=== PATIENT | male | born 1940 | race Caucasian/White ===

== ENCOUNTER → 2016-07-18 | Outpatient (CLI) | payer MEDICARE, OTHER ==
[~2016-07-18] MED LIST: ASPIRIN E.C. 8181 MG PO; CARAFATE 1GM1 G PO; CENTRUM1 TAB PO; CIPRO 500MG TA500 MG PO; CRESTOR 10MG10 MG PO; DILANTIN 100MG100 MG PO; EXELON9.5 MG/24 TD; LEXAPRO 10MG10 MG PO; MIRALAX PA17 GM/Dose PO; NAMENDA 10MG TA10 MG; NAPROSYN 2250 MG/TAB PO; ORAXYL20 MG PO; PERIOSTAT; PRILOSEC 20MG20 MG PO; TYLENOL 325MG325 MG PO; XANAX 0.5MG0.5 MG PO; ZOFRAN 4MG T4 MG/TAB PO
== END ==
LOC: BHSO 11:07
DX: F01.51 Vascular dementia, unspecified severity, with behavioral disturbance (principal)
CPT/HCPCS: 90791-AI

== ENCOUNTER → 2016-08-31 | Outpatient (CLI) | payer MEDICARE, OTHER | LOC: BHSO 10:16 | DX: F03.91 Unspecified dementia, unspecified severity, with behavioral disturbance (principal) ==

== ENCOUNTER → 2016-11-28 | Outpatient (CLI) | payer MEDICARE, OTHER | LOC: BHSO 10:10 | DX: F33.1 Major depressive disorder, recurrent, moderate (principal) ==

== ENCOUNTER → 2017-02-27 | Outpatient (CLI) | payer MEDICARE, OTHER | LOC: BHSO 10:11 | DX: F33.1 Major depressive disorder, recurrent, moderate (principal) ==

== ENCOUNTER 2017-04-03 12:30 | Outpatient (RCR) | payer MEDICARE, OTHER | END 2017-04-05 12:00 | LOC: WSPT 12:30 | DX: M76.62 Achilles tendinitis, left leg (principal) | CPT/HCPCS: G8978-GP; G8979-GP; G8980-GP ==

== ENCOUNTER → 2017-06-20 | Outpatient (CLI) | payer MEDICARE, OTHER | LOC: BHSO 15:56 | DX: F33.1 Major depressive disorder, recurrent, moderate (principal) | CPT/HCPCS: G0463 ==

== ENCOUNTER → 2017-09-18 | Outpatient (CLI) | payer MEDICARE, OTHER | LOC: BHSO 11:17 | DX: F06.32 Mood disorder due to known physiological condition with major depressive-like episode (principal) | CPT/HCPCS: G0463 ==

== ENCOUNTER → 2018-03-19 | Outpatient (CLI) | payer MEDICARE, OTHER | LOC: BHSO 13:38 | DX: F06.32 Mood disorder due to known physiological condition with major depressive-like episode (principal) | CPT/HCPCS: G0463 ==

== ENCOUNTER → 2018-05-30 | Outpatient (CLI) | payer MEDICARE, OTHER | LOC: BHSO 14:17 | DX: F06.32 Mood disorder due to known physiological condition with major depressive-like episode (principal) | CPT/HCPCS: G0463 ==